=== PATIENT | male | born 1975 | race Caucasian/White ===

== ENCOUNTER 2017-10-14 17:28 | Inpatient (IN) | payer OTHER ==
[2017-10-14] MEDS ORDERED: Sodium Chloride 0.9% 1,000 ML IV ONE (18:04)
--- NOTE | 2017-10-14 18:09 | C.PDOC ---
History Of Present Illness 42 y/o male, with past medical history of diabetes, presents to emergency department, sent by Dr. Willett for I&D of left buttock. Patient reports + fever. Denies nausea, vomiting, or other associated symptoms. Time Seen by Provider: 10/14/17 17:59 Chief Complaint (Nursing): Medical Clearance History Per: Patient History/Exam Limitations: no limitations Onset/Duration Of Symptoms: Days Current Symptoms Are (Timing): Still Present Recent travel outside of the [place]: No Past Medical History Reviewed: Historical Data, Nursing Documentation, Vital Signs Vital Signs: Last Vital Signs Temp 102.8 F H 10/14/17 17:32 Pulse 125 H 10/14/17 17:32 Resp 20 10/14/17 17:32 BP 151/105 H 10/14/17 17:32 Pulse Ox 96 10/14/17 18:28 - Medical History PMH: Diabetes, HTN Surgical History: Appendectomy Family History: States: Unknown Family Hx - Social History Hx Alcohol Use: Yes Hx Substance Use: No - Immunization History Hx Tetanus Toxoid Vaccination: No Hx Influenza Vaccination: No Hx Pneumococcal Vaccination: No Review Of Systems Except As Marked, All Systems Reviewed And Found Negative. Constitutional: Positive for: Fever Cardiovascular: Negative for: Chest Pain Respiratory: Negative for: Cough, Shortness of Breath Skin: Positive for: Lesions (left buttock) Physical Exam - Physical Exam Appears: Non-toxic, No Acute Distress Skin: Normal Color, Warm, Dry Head: Atraumatic, Normacephalic Chest: Symmetrical Cardiovascular: Rhythm Regular Respiratory: Normal Breath Sounds, No Rales, No Rhonchi, No Wheezing Gastrointestinal/Abdominal: Soft, No Tenderness, No Guarding, No Rebound Back: Normal Inspection Extremity: Normal ROM Neurological/Psych: Oriented x3, Normal Speech, Normal Cognition ED Course And Treatment O2 Sat by Pulse Oximetry: 96 (RA) Pulse Ox Interpretation: Normal Progress Note: Discussed with Dr. Willett who agrees upon admission. treated with vancomycin 1 GM IV and tylenol Reassessment Condition: Unchanged - Physician Consult Information Physician Contacted: Justo Willett Outcome Of Conversation: admit Disposition Discussed With : Justo Willett Doctor Will See Patient In The: Hospital - Disposition Disposition: HOSPITALIZED Disposition Time: 18:35 Condition: STABLE - POA Present On Arrival: None - Clinical Impression Clinical Impression: Abscess - PA / HAT MENDER / Resident Statement MD/DO has reviewed & agrees with the documentation as recorded. - Scribe Statement The provider has reviewed the documentation as recorded by the Alconibbecky Sanchez All medical record entries made by the Ralph were at my direction and personally dictated by me. I have reviewed the chart and agree that the record accurately reflects my personal performance of the history, physical exam, medical decision making, and the department course for this patient. I have also personally directed, reviewed, and agree with the discharge instructions and disposition. Decision To Admit - Pt Status Changed To: Hospital Disposition Of: Inpatient - Admit Certification Admit to Inpatient:: After my assessment, the patient will require hospitalization for at least two midnights. This is because of the severity of symptoms shown, intensity of services needed, and/or the medical risk in this patient being treated as an outpatient. - InPatient: Physician Admission Certification: I certify that this patient requires 2 or more midnights of care for the following reason:: Perirectal abscess - . Bed Request Type: Regular Admitting Physician: Justo Willett Patient Diagnosis: Abscess
[2017-10-14] MEDS ORDERED: Vancomycin 1 gm/NS 200 ml 1 GM/200 ML BAG IVPB ONE (18:15)
[2017-10-14 18:56] LABS: BASO % 0.5 % (0.0-2.0); EOS # 0.1 K/uL (0.0-0.7); EOS % 0.7 % (0.0-4.0); HEMATOCRIT 42.9 % (35.0-51.0); LYMPH # 1.4 K/uL (1.0-4.3); LYMPH % 12.6 % (20.0-40.0); MEAN CELL VOLUME 85.7 fL (80.0-94.0); MEAN CORPUSCULAR HEMOGLOBIN 29.4 pg (27.0-31.0); MEAN CORPUSCULAR HGB CONC 34.3 g/dL (33.0-37.0); MEAN PLATELET VOLUME 9.6 fL (7.2-11.7); MONO # 0.9 K/uL (0.0-0.8); MONO % 8.2 % (0.0-10.0); RED CELL DISTRIBUTION WIDTH 13.1 % (11.5-14.5); WHITE BLOOD COUNT 10.7 K/uL (4.8-10.8)
[2017-10-14 18:58] LABS: RBC URINE 1 /hpf (0-3); URINE BACTERIA OCC (<OCC); URINE BILIRUBIN NEGATIVE (NEGATIVE); URINE BLOOD NEGATIVE (NEGATIVE); URINE GLUCOSE (UA) 3+ mg/dL (Normal); URINE KETONE TRACE mg/dL (NEGATIVE); URINE LEUKOCYTE ESTERASE NEG Leu/uL (Negative); URINE PROTEIN 1+ mg/dL (NEGATIVE); WBC URINE 3 /hpf (0-5)
[2017-10-14 19:02] LABS: URINE COLOR YELLOW (YELLOW)
[2017-10-14 19:11] LABS: ALB/GLOB RATIO 1.5 (1.0-2.1); ALKALINE PHOSPHATASE 101 U/L (38-126); ALT/SGPT 72 U/L (21-72); AST/SGOT 35 U/L (17-59); BILIRUBIN,TOTAL 1.3 mg/dL (0.2-1.3); BLOOD UREA NITROGEN 15 mg/dL (9-20); CALCIUM 8.3 mg/dl (8.6-10.4); CARBON DIOXIDE 25 mmol/L (22-30); CHLORIDE 98 mmol/L (98-107); GFR AFRICAN-AMERICAN > 60; GLUCOSE,RANDOM 173 mg/dL (75-110); POTASSIUM 3.5 mmol/L (3.6-5.2); SODIUM 132 mmol/L (132-148); TOTAL PROTEIN 6.9 g/dL (6.3-8.3)
--- NOTE | 2017-10-14 22:59 | CP.PCM.HP ---
History of Present Illness - History of Present Illness History of Present Illness: CC: perianal pain and abscess x 1 week HPI: 42 y/o male with h/o type 2 DM, HTN, Hyperlipidemia , non complaint with his diet , medication and follow up presents with perianal abscess with foul smelling discharge associated with fever, chills and rigors and since yesterday he has been coughing, congested and feeling tired . Denies nausea, vomiting, or other associated symptoms. Present on Admission - Present on Admission Any Indicators Present on Admission: Yes Review of Systems - Review of Systems Systems not reviewed;Unavailable: Acuity of Condition - Constitutional Constitutional: Chills, Fever, Lethargy, Malaise. absent: As Per HPI, Anorexia , Daytime Sleepiness, Excessive Sweating, Fatigue, Frequent Falls, Headache, Increased Appetite, Night Sweats, Snoring, Sleep Apnea, Weight Gain, Weight Loss , Weakness, Other - EENT Eyes: absent: As Per HPI, Blind Spots, Blurred Vision, Change in Vision, Decreased Night Vision, Diplopia, Discharge, Dry Eye, Exophthalmos, Floaters, Irritation, Itchy Eyes, Loss of Peripheral Vision, Pain, Photophobia, Requires Corrective Lenses, Sees Flashes, Spots in Vision, Tunnel Vision, Other Visual Disturbances, Loss of Vision, Other Nose/Mouth/Throat: Nasal Congestion - Cardiovascular Cardiovascular: absent: As Per HPI, Acrocyanosis, Chest Pain, Chest Pain at Rest , Chest Pain with Activity, Claudication, Diaphoresis, Dyspnea, Dyspnea on Exertion, Edema, Irregular Heart Rhythm, Pain Radiating to Arm/Neck/Jaw, Leg Edema, Leg Ulcers, Lightheadedness, Orthopnea, Palpitations, Paroxysmal Nocturnal Dyspnea, Pedal Edema, Radiating Pain, Rapid Heart Rate, Slow Heart Rate, Syncope, Other - Respiratory Respiratory: Cough, Dyspnea, Dyspnea on Exertion, Pain with Coughing - Gastrointestinal Gastrointestinal: absent: As Per HPI, Abdominal Pain, Belching, Bloating, Change in Bowel Habits, Change in Stool Character, Coffee Ground Emesis, Constipation, Cramping, Diarrhea, Dyspepsia, Dysphagia, Early Satiety, Excessive Flatus, Fecal Incontinence, Heartburn, Hematemesis, Hematochezia, Loose Stools, Melena, Nausea, Odynophagia, Temesmus, Vomiting, Other - Genitourinary Genitourinary: Urinary Frequency. absent: As Per HPI, Change in Urinary Stream , Difficulty Urinating, Dysuria, Flank Pain, Hematuria, Pyuria, Nocturia, Urinary Incontinence, Urinary Hesitance, Urinary Urgency, Voiding Freq/Small Amts, Freq UTI, Hx Renal/Bladder Calculi, Hx /Renal Surgery, Bladder Distension, Other - Musculoskeletal Musculoskeletal: Myalgias - Integumentary Integumentary: Dry Skin, Pruritus, Skin Pain, Skin Ulcer - Neurological Neurological: absent: As Per HPI, Abnormal Gait, Abnormal Hearing, Abnormal Movements, Abnormal Speech, Behavioral Changes, Burning Sensations, Confusion, Convulsions, Disequilibrium, Dizziness, Numbness, Focal Weakness, Frequent Falls , Headaches, Lack of Coordination, Loss of Vision, Memory Loss, Paresthesias, Radicular Pain, Restless Legs, Sensory Deficit, Syncope, Tingling, Tremor, Vertigo, Weakness, Other Visual Disturbances, Other - Psychiatric Psychiatric: absent: As Per HPI, Abnormal Sleep Pattern, Anhedonia, Anxiety, Auditory Hallucinations, Behavioral Changes, Change in Appetite, Change in Libido, Confusion, Depression, Difficulty Concentrating, Hallucinations, Homicidal Ideation, Hopelessness, Irritability, Memory Loss, Mood Swings, Panic Attacks, Paranoia, Suicidal Ideation, Visual Hallucinations, Tactile Hallucinations, Other - Endocrine Endocrine: Fatigue, Polydipsia, Polyphagia, Polyuria. absent: As Per HPI, Change in Body Appearance, Change in Libido, Cold Intolorance, Deepening of Voice, Excessive Sweating, Flushing, Heat Intolorance, Increase in Ring/Shoe/ Hat Size, Palpitations, Other Past Patient History - Past Medical History & Family History Past Medical History?: Yes - Past Social History Smoking Status: Light Smoker < 10 Cigarettes Daily - CARDIAC Hx Hypertension: Yes - ENDOCRINE/METABOLIC Hx Diabetes Mellitus Type 2: Yes - MUSCULOSKELETAL/RHEUMATOLOGICAL Hx Falls: No - PSYCHIATRIC Hx Substance Use: No - SURGICAL HISTORY Hx Appendectomy: Yes - ANESTHESIA Hx Anesthesia: Yes Hx Anesthesia Reactions: No Meds Allergies/Adverse Reactions: Allergies Allergy/AdvReac Type Severity Reaction Status Date / Time No Known Allergies Allergy Verified 10/14/17 17:36 Physical Exam - Constitutional Appears: No Acute Distress - Head Exam Head Exam: ATRAUMATIC, NORMAL INSPECTION, NORMOCEPHALIC - Eye Exam Eye Exam: EOMI, Normal appearance, PERRL Pupil Exam: NORMAL ACCOMODATION, PERRL - Respiratory Exam Respiratory Exam: Decreased Breath Sounds, Rales, Rhonchi - Cardiovascular Exam Cardiovascular Exam: REGULAR RHYTHM - GI/Abdominal Exam GI & Abdominal Exam: Normal Bowel Sounds, Soft. absent: Tenderness - Rectal Exam Rectal Exam: Deferred Additional comments: perianal abscess with foul smelling discharge positive erythema, redness Results - Vital Signs Recent Vital Signs: Last Vital Signs Temp 99.2 F 10/14/17 21:45 Pulse 91 H 10/14/17 21:45 Resp 20 10/14/17 21:45 BP 151/94 H 10/14/17 21:45 Pulse Ox 96 10/14/17 21:45 - Labs Result Diagrams: 10/14/17 18:47 10/14/17 18:47 Labs: Laboratory Results - last 24 hr 10/14/17 10/14/17 10/14/17 18:47 18:47 18:47 WBC 10.7 RBC 5.01 Hgb 14.7 Hct 42.9 MCV 85.7 MCH 29.4 MCHC 34.3 RDW 13.1 Plt Count 194 MPV 9.6 Neut % (Auto) 78.0 H Lymph % (Auto) 12.6 L [place] % (Auto) 8.2 Eos % (Auto) 0.7 Baso % (Auto) 0.5 Neut # 8.4 H Lymph # 1.4 [place] # 0.9 H Eos # 0.1 Baso # 0.0 Sodium 132 Potassium 3.5 L Chloride 98 Carbon Dioxide 25 Anion Gap 13 BUN 15 Creatinine 0.7 L Est GFR ( Amer) > 60 Est GFR (Non-Af Amer) > 60 POC Glucose (mg/dL) Random Glucose 173 H Calcium 8.3 L Total Bilirubin 1.3 AST 35 ALT 72 Alkaline Phosphatase 101 Total Protein 6.9 Albumin 4.1 Globulin 2.8 Albumin/Globulin Ratio 1.5 Urine Color Yellow Urine Clarity Clear Urine pH 5.0 Ur Specific [place] 1.025 Urine Protein 1+ H Urine Glucose (UA) 3+ H Urine Ketones Trace Urine Blood Negative Urine Nitrate Negative Urine Bilirubin Negative Urine Urobilinogen 4.0 Ur Leukocyte Esterase Neg Urine WBC (Auto) 3 Urine RBC (Auto) 1 Ur Squamous Epith Cells 2 Urine Bacteria Occ H 10/14/17 21:32 WBC RBC Hgb Hct MCV MCH MCHC RDW Plt Count MPV Neut % (Auto) Lymph % (Auto) [place] % (Auto) Eos % (Auto) Baso % (Auto) Neut # Lymph # [place] # Eos # Baso # Sodium Potassium Chloride Carbon Dioxide Anion Gap BUN Creatinine Est GFR ( Amer) Est GFR (Non-Af Amer) POC Glucose (mg/dL) 157 H Random Glucose Calcium Total Bilirubin AST ALT Alkaline Phosphatase Total Protein Albumin Globulin Albumin/Globulin Ratio Urine Color Urine Clarity Urine pH Ur Specific [place] Urine Protein Urine Glucose (UA) Urine Ketones Urine Blood Urine Nitrate Urine Bilirubin Urine Urobilinogen Ur Leukocyte Esterase Urine WBC (Auto) Urine RBC (Auto) Ur Squamous Epith Cells Urine Bacteria Assessment & Plan (1) Diabetes Status: Acute (2) Perianal abscess Status: Acute
[2017-10-14] MEDS ORDERED: Piperacillin/Tazobact 3.375 GM in Sodium Chloride 100 ML IVPB SCH (23:00)
[2017-10-15] MEDS: Piperacill/Tazo 3.375gm in Dex 3.375 GM/50 ML BAG IVPB SCH ×5 (05:15→22:22)
[2017-10-15] MEDS: (Novolog) Insulin Aspart, Recombinant 100 u/ml 10 ml vial SC SCH ×4 (08:25→22:20)
[2017-10-15] MEDS ORDERED: Nitroglycerin 2% Ointment Foilpak UD TOP STA (08:25)
--- NOTE | 2017-10-15 08:28 | RAD ---
HISTORY: Shortness of breath COMPARISON: No prior. TECHNIQUE: Chest PA and lateral FINDINGS: LUNGS: No active pulmonary disease. Punctate nodular density at the right lung apex may represent vessel on end. PLEURA: No significant pleural effusion identified. No pneumothorax apparent. CARDIOVASCULAR: Normal. OSSEOUS STRUCTURES: No significant abnormalities. VISUALIZED UPPER ABDOMEN: Normal. OTHER FINDINGS: None. IMPRESSION: No active disease.
[2017-10-15] MEDS: Vancomycin 1 gm/NS 200 ml 1 GM/200 ML BAG IVPB SCH ×3 (10:05→17:34)
[2017-10-15] MEDS ORDERED: Bupivacaine HCl 0.25% PF (10 ml) Inj ONE (16:42)
[2017-10-15] MEDS ORDERED: metroNIDAZOLE IV 500 mg/100 ml 500 MG/100 ML BAG ONE (16:43)
[2017-10-15] MEDS ORDERED: Lactated Ringer's 1,000 ML IV ONE (16:51)
[2017-10-15] MEDS ORDERED: HYDROmorphone 0.5 mg/0.5 ml ISec IVP PRN (17:10)
--- NOTE | 2017-10-15 18:47 | OP ---
PROCEDURE DATE: 10/15/2017 PREOPERATIVE DIAGNOSIS: Rectal and pelvic abscess. POSTOPERATIVE DIAGNOSIS: Rectal and pelvic abscess. PROCEDURE PERFORMED: 1. Proctosigmoidoscopy (11531). 2. Incision and drainage of rectal, pelvic and retroperitoneal abscess (19834). 3. Repair of pelvic blood vessel (26451) and adjacent tissue transfer closure 14 sq cm (34392). SURGEON: Raji Novak MD ANESTHESIA: General. BLOOD LOSS: 80 ml. POSTOPERATIVE CONDITION: Stable. INDICATIONS FOR SURGERY: A 42-year-old male presents with extensive rectal and pelvic abscess, taken to the OR now for a drainage. GROSS FINDINGS: He had a supralevator type abscess extending into the pelvic space. 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 PROCEDURE: The patient was taken to the operating room and general anesthesia was administered and placed lithotomy position. The previously spontaneously drained abscess defect was explored and wide. The cavity was noted to extend deep into the pelvis and retroperitoneal space and all the pus was drained from these areas and cultured. A probe was then passed through the intersphincteric fistula into the anus posteriorly and the overlying tissue was divided using the Bovie performing a fistulotomy. A pelvic blood vessel noted to be bleeding was repaired. The wound was irrigated with copious amounts of saline solution. There was a very large tissue defect and in order to facilitate closure, a partial advancement flap closure was performed by widely mobilizing at the periphery and closing approximately 14 sq cm of the wound. The central portion of wound was packed open with saline gauze. The patient tolerated procedure well. Returned to recovery in stable condition. Raji Novak MD
--- NOTE | 2017-10-15 22:39 | CP.PCM.PN ---
Subjective - Date & Time of Evaluation Date of Evaluation: 10/15/17 Time of Evaluation: 18:00 - Subjective Subjective: Pt is s/p Or, he has fistuolectomy done, on post op care Objective - Vital Signs/Intake and Output Vital Signs (last 24 hours): Temp Pulse Resp BP Pulse Ox 98 F 88 16 118/72 96 10/15/17 18:30 10/15/17 18:30 10/15/17 18:30 10/15/17 18:30 10/15/17 18:30 - Medications Medications: Current Medications Glimepiride (Amaryl) 4 mg PO ACD [facility] Last Admin: 10/15/17 19:22 Dose: 4 mg Heparin Sodium (Porcine) (Heparin) 5,000 units SC Q8 [facility] Last Admin: 10/15/17 22:22 Dose: 5,000 units Piperacillin Sod/Tazobactam Sod (Zosyn 3.375 Gm Iv Premix) 3.375 gm in 50 mls @ 100 mls/hr IVPB Q6H [facility] Last Admin: 10/15/17 22:22 Dose: 100 mls/hr Vancomycin/Sodium Chloride (Vancomycin 1 Gm/Ns 200 Ml) 1 gm in 200 mls @ 133 mls/hr IVPB Q12H [facility] Stop: 10/20/17 08:01 Last Admin: 10/15/17 16:58 Dose: 50 mls Insulin Aspart (Novolog) 0 unit SC ACHS [facility] PRN Reason: Protocol Last Admin: 10/15/17 22:20 Dose: Not Given Losartan Potassium (Cozaar) 50 mg PO DAILY [facility] Last Admin: 10/15/17 09:01 Dose: Not Given Metformin HCl (Glucophage Xr) 500 mg PO BID [facility] Last Admin: 10/15/17 19:21 Dose: 500 mg Pneumococcal Polyvalent Vaccine (Pneumovax 23 Vaccine) 0.5 ml IM .ONCE ONE Stop: 10/16/17 10:01 - Labs Labs: 10/14/17 18:47 10/14/17 18:47 APTT 36 SECONDS (21-34) H 10/15/17 06:17 - Constitutional Appears: No Acute Distress - Head Exam Head Exam: ATRAUMATIC, NORMAL INSPECTION, NORMOCEPHALIC - Eye Exam Eye Exam: EOMI, Normal appearance, PERRL Pupil Exam: NORMAL ACCOMODATION, PERRL - ENT Exam ENT Exam: Mucous Membranes Moist, Normal Exam - Respiratory Exam Respiratory Exam: Clear to Ausculation Bilateral, NORMAL BREATHING PATTERN - Cardiovascular Exam Cardiovascular Exam: REGULAR RHYTHM, +S1, +S2. absent: Murmur - GI/Abdominal Exam GI & Abdominal Exam: Soft, Normal Bowel Sounds. absent: Tenderness - Neurological Exam Neurological Exam: Alert, Awake, CN II-XII Intact, Normal Gait, Oriented x3 Assessment and Plan (1) Diabetes Status: Acute (2) Perianal abscess Assessment & Plan: s/P OR post op care wound care pain managemnt Status: Acute
[2017-10-16 01:10] VITALS: RESP 20
[2017-10-16] MEDS: Piperacill/Tazo 3.375gm in Dex 3.375 GM/50 ML BAG IVPB SCH ×4 (05:40→21:59)
[2017-10-16 07:00] LABS: BASO % 0.5 % (0.0-2.0); EOS # 0.2 K/uL (0.0-0.7); EOS % 1.8 % (0.0-4.0); HEMATOCRIT 40.5 % (35.0-51.0); LYMPH # 1.6 K/uL (1.0-4.3); LYMPH % 17.8 % (20.0-40.0); MEAN CELL VOLUME 85.4 fL (80.0-94.0); MEAN CORPUSCULAR HEMOGLOBIN 29.3 pg (27.0-31.0); MEAN CORPUSCULAR HGB CONC 34.3 g/dL (33.0-37.0); MEAN PLATELET VOLUME 9.6 fL (7.2-11.7); MONO # 0.6 K/uL (0.0-0.8); MONO % 6.3 % (0.0-10.0); NRBC % 0.1 % (0.0-2.0); RED CELL DISTRIBUTION WIDTH 12.8 % (11.5-14.5)
[2017-10-16 07:06] LABS: POTASSIUM 3.5 mmol/L (3.6-5.2)
[2017-10-16 07:13] LABS: BLOOD UREA NITROGEN 7 mg/dL (9-20); CARBON DIOXIDE 24 mmol/L (22-30); CHLORIDE 103 mmol/L (98-107); GFR AFRICAN-AMERICAN > 60; GLUCOSE,RANDOM 110 mg/dL (75-110); SODIUM 136 mmol/L (132-148)
[2017-10-16] MEDS: Vancomycin 1 gm/NS 200 ml 1 GM/200 ML BAG IVPB SCH ×2 (08:59→20:00)
[2017-10-16] MEDS ORDERED: Influenza Vaccine 60 mcg/0.5 mL SYR (4YR UP) IM ONE ×2 (10:00→12:45)
[2017-10-16] MEDS ORDERED: Pneumococcal 23-Valent Vaccine IM ONE (10:00)
[2017-10-16] MEDS ORDERED: Potassium Chloride 20 mEq ER Tab PO ONE (10:00)
--- NOTE | 2017-10-16 11:05 | CARD ---
APPROVED REPORT EKG Measurement Heart [id number] <Conclusion> Normal sinus rhythm Minimal voltage criteria for LVH, may be normal variant Inferior infarct, age undetermined Anterior infarct, age undetermined Abnormal ECG
[2017-10-16] MEDS ORDERED: Oxycodone/Acetaminophen 5/325 mg Tab PO PRN (11:39)
[2017-10-16] MEDS: (Novolog) Insulin Aspart, Recombinant 100 u/ml 10 ml vial SC SCH ×4 (12:31→21:58)
[2017-10-16] MEDS: Oxycodone/Acetaminophen 5/325 mg Tab PO PRN (12:55)
--- NOTE | 2017-10-16 23:30 | CP.PCM.PN ---
Subjective - Date & Time of Evaluation Date of Evaluation: 10/16/17 Time of Evaluation: 18:00 Objective - Vital Signs/Intake and Output Vital Signs (last 24 hours): Temp Pulse Resp BP Pulse Ox 98.1 F 92 H 20 164/91 H 98 10/16/17 15:00 10/16/17 15:00 10/16/17 15:00 10/16/17 15:00 10/16/17 15:00 Intake and Output: 10/16/17 10/17/17 18:59 06:59 Intake Total 650 Balance 650 - Medications Medications: Current Medications Glimepiride (Amaryl) 4 mg PO ACD [facility] Last Admin: 10/16/17 16:30 Dose: 4 mg Heparin Sodium (Porcine) (Heparin) 5,000 units SC Q8 [facility] Last Admin: 10/16/17 22:04 Dose: 5,000 units Piperacillin Sod/Tazobactam Sod (Zosyn 3.375 Gm Iv Premix) 3.375 gm in 50 mls @ 100 mls/hr IVPB Q6H [facility] Last Admin: 10/16/17 21:59 Dose: 100 mls/hr Vancomycin/Sodium Chloride (Vancomycin 1 Gm/Ns 200 Ml) 1 gm in 200 mls @ 133 mls/hr IVPB Q12H [facility] Stop: 10/20/17 08:01 Last Admin: 10/16/17 20:00 Dose: 133 mls/hr Insulin Aspart (Novolog) 0 unit SC ACHS [facility] PRN Reason: Protocol Last Admin: 10/16/17 21:58 Dose: Not Given Losartan Potassium (Cozaar) 50 mg PO DAILY [facility] Last Admin: 10/16/17 09:18 Dose: 50 mg Metformin HCl (Glucophage Xr) 500 mg PO BID [facility] Last Admin: 10/16/17 17:33 Dose: 500 mg Oxycodone/Acetaminophen (Percocet 5/325 Mg Tab) 1 tab PO Q6H PRN PRN Reason: Pain, moderate (4-7) Stop: 10/19/17 11:40 Oxycodone/Acetaminophen (Percocet 5/325 Mg Tab) 2 tab PO Q4H PRN PRN Reason: Pain, severe (8-10) Stop: 10/19/17 11:56 Last Admin: 10/16/17 12:55 Dose: 2 tab - Labs Labs: 10/16/17 06:33 10/16/17 06:33 APTT 36 SECONDS (21-34) H 10/15/17 06:17 Assessment and Plan (1) Diabetes Status: Acute (2) Perianal abscess Status: Acute
[2017-10-17] MEDS: Oxycodone/Acetaminophen 5/325 mg Tab PO PRN (01:55)
[2017-10-17] MEDS: Piperacill/Tazo 3.375gm in Dex 3.375 GM/50 ML BAG IVPB SCH ×2 (05:00→11:56)
[2017-10-17 07:30] VITALS: BP 141/95; PULSE 69; TEMP 97.7; O2SAT 96
[2017-10-17] MEDS: (Novolog) Insulin Aspart, Recombinant 100 u/ml 10 ml vial SC SCH ×2 (08:10→11:57)
[2017-10-17] MEDS: Vancomycin 1 gm/NS 200 ml 1 GM/200 ML BAG IVPB SCH (08:28)
--- NOTE | 2017-10-17 23:20 | CP.PCM.DIS ---
Provider - Provider Date of Admission: 10/14/17 18:08 Attending physician: Justo Willett MD Diagnosis - Discharge Diagnosis (1) Diabetes Status: Acute (2) Perianal abscess Status: Acute Hospital Course - Lab Results Lab Results: Micro Results 10/15/17 19:00 Rectum Gram Stain - Final 10/15/17 19:00 Rectum Wound Culture - Preliminary Gram Negative Jaime Corynebacterium Species 10/14/17 18:20 Blood Blood Culture - Preliminary NO GROWTH AFTER 48 HOURS 10/14/17 18:45 Blood Blood Culture - Preliminary NO GROWTH AFTER 48 HOURS Most Recent Lab Values WBC 9.0 K/uL (4.8-10.8) 10/16/17 06:33 RBC 4.74 Mil/uL (4.40-5.90) 10/16/17 06:33 Hgb 13.9 g/dL (12.0-18.0) 10/16/17 06:33 Hct 40.5 % (35.0-51.0) 10/16/17 06:33 MCV 85.4 fL (80.0-94.0) 10/16/17 06:33 MCH 29.3 pg (27.0-31.0) 10/16/17 06:33 MCHC 34.3 g/dL (33.0-37.0) 10/16/17 06:33 RDW 12.8 % (11.5-14.5) 10/16/17 06:33 Plt Count 199 K/uL (130-400) 10/16/17 06:33 MPV 9.6 fL (7.2-11.7) 10/16/17 06:33 Neut % (Auto) 73.6 % (50.0-75.0) 10/16/17 06:33 Lymph % (Auto) 17.8 % (20.0-40.0) L 10/16/17 06:33 [place] % (Auto) 6.3 % (0.0-10.0) 10/16/17 06:33 Eos % (Auto) 1.8 % (0.0-4.0) 10/16/17 06:33 Baso % (Auto) 0.5 % (0.0-2.0) 10/16/17 06:33 Neut # 6.7 K/uL (1.8-7.0) 10/16/17 06:33 Lymph # 1.6 K/uL (1.0-4.3) 10/16/17 06:33 [place] # 0.6 K/uL (0.0-0.8) 10/16/17 06:33 Eos # 0.2 K/uL (0.0-0.7) 10/16/17 06:33 Baso # 0.0 K/uL (0.0-0.2) 10/16/17 06:33 APTT 36 SECONDS (21-34) H 10/15/17 06:17 Sodium 136 mmol/L (132-148) 10/16/17 06:33 Potassium 3.5 mmol/L (3.6-5.2) L 10/16/17 06:33 Chloride 103 mmol/L (98-107) 10/16/17 06:33 Carbon Dioxide 24 mmol/L (22-30) 10/16/17 06:33 Anion Gap 13 (10-20) 10/16/17 06:33 BUN 7 mg/dL (9-20) L 10/16/17 06:33 Creatinine 0.6 mg/dL (0.8-1.5) L 10/16/17 06:33 Est GFR ( Amer) > 60 10/16/17 06:33 Est GFR (Non-Af Amer) > 60 10/16/17 06:33 POC Glucose (mg/dL) 218 mg/dL (65-110) H 10/17/17 11:10 Random Glucose 110 mg/dL (75-110) 10/16/17 06:33 Calcium 8.0 mg/dl (8.6-10.4) L 10/16/17 06:33 Total Bilirubin 1.3 mg/dL (0.2-1.3) 10/14/17 18:47 AST 35 U/L (17-59) 10/14/17 18:47 ALT 72 U/L (21-72) 10/14/17 18:47 Alkaline Phosphatase 101 U/L (38-126) 10/14/17 18:47 Total Protein 6.9 g/dL (6.3-8.3) 10/14/17 18:47 Albumin 4.1 g/dL (3.5-5.0) 10/14/17 18:47 Globulin 2.8 gm/dL (2.2-3.9) 10/14/17 18:47 Albumin/Globulin Ratio 1.5 (1.0-2.1) 10/14/17 18:47 Urine Color Yellow (YELLOW) 10/14/17 18:47 Urine Clarity Clear (Clear) 10/14/17 18:47 Urine pH 5.0 (5.0-8.0) 10/14/17 18:47 Ur Specific [place] 1.025 (1.003-1.030) 10/14/17 18:47 Urine Protein 1+ mg/dL (NEGATIVE) H 10/14/17 18:47 Urine Glucose (UA) 3+ mg/dL (Normal) H 10/14/17 18:47 Urine Ketones Trace mg/dL (NEGATIVE) 10/14/17 18:47 Urine Blood Negative (NEGATIVE) 10/14/17 18:47 Urine Nitrate Negative (NEGATIVE) 10/14/17 18:47 Urine Bilirubin Negative (NEGATIVE) 10/14/17 18:47 Urine Urobilinogen 4.0 mg/dL (0.2-1.0) 10/14/17 18:47 Ur Leukocyte Esterase Neg [place]/uL (Negative) 10/14/17 18:47 Urine WBC (Auto) 3 /hpf (0-5) 10/14/17 18:47 Urine RBC (Auto) 1 /hpf (0-3) 10/14/17 18:47 Ur Squamous Epith Cells 2 /hpf (0-5) 10/14/17 18:47 Urine Bacteria Occ (<OCC) H 10/14/17 18:47 Discharge Exam - Head Exam Head Exam: ATRAUMATIC, NORMAL INSPECTION, NORMOCEPHALIC Discharge Plan - Follow Up Plan Condition: STABLE Disposition: HOME/ ROUTINE Instructions: Cellulitis (DC), Fever in Adults (GEN), Abscess (GEN) Referrals: Justo Willett MD [Staff Provider] - Raji Novak MD [Staff Provider] -
== END 2017-10-17 12:59 | disposition home or self-care (01) | DRG 553 ==
LOC: C.ER 17:28 → C.9E 18:08 → C.3T 19:42
PROVIDERS: ADMIT Internal Medicine; ATTEND Internal Medicine
PROC: 0D8R3ZZ Division of Anal Sphincter, Percutaneous Approach (ICD-10-PCS; 2017-10-15)
PROC: 0D9P3ZZ Drainage of Rectum, Percutaneous Approach (ICD-10-PCS; 2017-10-15)
PROC: 0DJD8ZZ Inspection of Lower Intestinal Tract, Via Natural or Artificial Opening Endoscopic (ICD-10-PCS; 2017-10-15)
PROC: 0W9H3ZZ Drainage of Retroperitoneum, Percutaneous Approach (ICD-10-PCS; principal; 2017-10-15 15:00)
DX: K61.2 Anorectal abscess (principal); K68.19 Other retroperitoneal abscess; K60.3 Anal fistula; I10 Essential (primary) hypertension; E11.9 Type 2 diabetes mellitus without complications; F17.210 Nicotine dependence, cigarettes, uncomplicated; E78.5 Hyperlipidemia, unspecified; Z91.11 Patient's noncompliance with dietary regimen; Z90.49 Acquired absence of other specified parts of digestive tract

== ENCOUNTER 2018-07-19 17:57 | Inpatient (IN) | payer OTHER ==
[2018-07-19 18:55] LABS: BASO # 0.1 K/uL (0.0-0.2); BASO % 0.6 % (0.0-2.0); EOS % 0.1 % (0.0-4.0); HEMOGLOBIN 15.4 g/dL (12.0-18.0); LYMPH # 0.7 K/uL (1.0-4.3); LYMPH % 7.3 % (20.0-40.0); MEAN CELL VOLUME 85.2 fL (80.0-94.0); MEAN CORPUSCULAR HEMOGLOBIN 29.3 pg (27.0-31.0); MEAN CORPUSCULAR HGB CONC 34.4 g/dL (33.0-37.0); MEAN PLATELET VOLUME 9.5 fL (7.2-11.7); MONO # 0.7 K/uL (0.0-0.8); MONO % 7.6 % (0.0-10.0); NEUT # 8.1 K/uL (1.8-7.0); NEUT % 84.4 % (50.0-75.0); PLATELET COUNT 173 K/uL (130-400); RBC 5.25 Mil/uL (4.40-5.90); RED CELL DISTRIBUTION WIDTH 12.6 % (11.5-14.5); WHITE BLOOD COUNT 9.6 K/uL (4.8-10.8)
[2018-07-19 19:01] LABS: SQUAMOUS EPITHIAL < 1 /hpf (0-5); URINE BILIRUBIN NEGATIVE (NEGATIVE); URINE BLOOD NEGATIVE (NEGATIVE); URINE CLARITY Clear (Clear); URINE COLOR Yellow (YELLOW); URINE GLUCOSE (UA) 1+ mg/dL (Normal); URINE LEUKOCYTE ESTERASE NEG Leu/uL (Negative); URINE PROTEIN 1+ mg/dL (NEGATIVE)
[2018-07-19] MEDS ORDERED: Sodium Chloride 0.9% 1,000 ML IV ONE (19:03)
[2018-07-19 19:27] LABS: ALB/GLOB RATIO 1.3 (1.0-2.1); ALBUMIN 3.9 g/dL (3.5-5.0); ALT/SGPT 63 U/L (21-72); AST/SGOT 40 U/L (17-59); BLOOD UREA NITROGEN 11 mg/dL (9-20); CALCIUM 8.7 mg/dl (8.6-10.4); GFR NON-AFRICAN AMERICAN > 60
--- NOTE | 2018-07-19 19:50 | C.PDOC ---
History Of Present Illness 43 year old male with PMHx of DM presents to the ED for evaluation of fever which is associated with cough, chills, vomiting, diarrhea and decreased appetite. Patient reports he went to see Dr. Willett for evaluation of chest tightness. Patient was diagnosed with bronchitis and was prescribed Augmentin. Patient states he has been taking Augmentin since Thursday. Patient's reports that due to the patient's fever they turned off the AM at home. Patient denies rash, recent travel, back pain, dyauria, hematuria, sick contacts. Time Seen by Provider: 07/19/18 18:29 Chief Complaint (Nursing): Cough, Cold, Congestion History Per: Patient History/Exam Limitations: no limitations Onset/Duration Of Symptoms: Days Current Symptoms Are (Timing): Still Present Location Of Pain: Throat, Diffuse Myalgias Sick Contacts (Context): None Associated Symptoms: Fever, Cough, Myalgias, Vomiting, Diarrhea Ear Symptoms: Bilateral: None Recent travel outside of the [place]: No Additional History Per: Patient Past Medical History Reviewed: Historical Data, Nursing Documentation, Vital Signs Vital Signs: Last Vital Signs Temp 99.8 F H 07/19/18 20:37 Pulse 95 H 07/19/18 20:37 Resp 18 07/19/18 20:37 BP 113/78 07/19/18 20:37 Pulse Ox 98 07/19/18 20:37 - Medical History PMH: Diabetes, HTN Surgical History: Appendectomy - [facility] Procedures DIVISION OF ANAL SPHINCTER, PERCUTANEOUS APPROACH (10/14/17) DRAINAGE OF RECTUM, PERCUTANEOUS APPROACH (10/14/17) DRAINAGE OF RETROPERITONEUM, PERCUTANEOUS APPROACH (10/14/17) INSPECTION OF LOWER INTESTINAL TRACT, ENDO (10/14/17) Family History: States: Unknown Family Hx - Social History Hx Tobacco Use: No Hx Alcohol Use: Yes Hx Substance Use: No - Immunization History Hx Tetanus Toxoid Vaccination: No Hx Influenza Vaccination: No Hx Pneumococcal Vaccination: No Review Of Systems Constitutional: Negative for: Fever, Chills Cardiovascular: Positive for: Chest Pain. Negative for: Palpitations Respiratory: Negative for: Cough, Shortness of Breath Gastrointestinal: Positive for: Nausea, Vomiting. Negative for: Abdominal Pain Skin: Negative for: Rash Neurological: Negative for: Weakness, Numbness Physical Exam - Physical Exam Appears: Non-toxic, No Acute Distress Skin: Normal Color, Warm, Dry, No Rash Head: Atraumatic, Normacephalic Eye(s): bilateral: Normal Inspection Ear(s): Bilateral: Normal Nose: No Discharge Oral Mucosa: Moist Throat: Normal, No Erythema, No Exudate Neck: Normal ROM, Supple Chest: Symmetrical Cardiovascular: Rhythm Regular, No Friction Rub, No Murmur Respiratory: Normal Breath Sounds, No Rales, No Rhonchi, No Wheezing Gastrointestinal/Abdominal: Soft, No Tenderness, No Guarding, No Rebound Back: Normal Inspection, No CVA Tenderness Extremity: Normal ROM, No Tenderness, No Swelling Neurological/Psych: Oriented x3, Normal Speech, Normal Motor, Normal Sensation Gait: Steady ED Course And Treatment - Laboratory Results Result Diagrams: 07/19/18 18:49 07/19/18 18:49 O2 Sat by Pulse Oximetry: 97 (ON RA) Pulse Ox Interpretation: Normal Medical Decision Making Medical Decision Making: Plan: * Labs * Motrin 600 mg PO * IV fluids * UA The case was discussed with Dr. Willett who agrees to admit the patient. Disposition - Disposition Disposition: HOSPITALIZED Disposition Time: 19:30 Condition: STABLE - POA Present On Arrival: None - Clinical Impression Clinical Impression: Pneumonia - PA / CREDIT ADJUSTER / Resident Statement MD/DO has reviewed & agrees with the documentation as recorded. - Scribe Statement The provider has reviewed the documentation as recorded by the Scribe Wyatt Strong All medical record entries made by the Scribe were at my direction and personally dictated by me. I have reviewed the chart and agree that the record accurately reflects my personal performance of the history, physical exam, medical decision making, and the department course for this patient. I have also personally directed, reviewed, and agree with the discharge instructions and disposition.
[2018-07-19 19:59] LABS: LYMPHOCYTE 8 % (20-40); MONOCYTE 9 % (0-10); NEUTROPHIL 83 % (50-75); TOTAL CELLS COUNTED 100
[2018-07-19 20:00] LABS: PLATELET ESTIMATE NORMAL (NORMAL)
[2018-07-19] MEDS ORDERED: cefTRIAXone IV 1 gm in Dextros 50 ML IV ONE (20:19)
[2018-07-19] MEDS ORDERED: Azithromycin 500mg/250ML NS 500 MG/250 ML BAG IV ONE (20:30)
[2018-07-19] MEDS ORDERED: Azithromycin 500mg/250ML NS 500 MG/250 ML BAG IVPB ONE (20:32)
--- NOTE | 2018-07-19 23:50 | CP.PCM.HP ---
Present on Admission - Present on Admission Any Indicators Present on Admission: No Past Patient History - Past Medical History & Family History Past Medical History?: Yes - Past Social History Smoking Status: Light Smoker < 10 Cigarettes Daily - CARDIAC Hx Hypertension: Yes - ENDOCRINE/METABOLIC Hx Diabetes Mellitus Type 2: Yes - MUSCULOSKELETAL/RHEUMATOLOGICAL Hx Falls: No - PSYCHIATRIC Hx Substance Use: No - SURGICAL HISTORY Hx Appendectomy: Yes - ANESTHESIA Hx Anesthesia: Yes Hx Anesthesia Reactions: No Meds Allergies/Adverse Reactions: Allergies Allergy/AdvReac Type Severity Reaction Status Date / Time No Known Allergies Allergy Verified 07/19/18 18:12 Results - Vital Signs Recent Vital Signs: Last Vital Signs Temp 99.8 F H 07/19/18 20:37 Pulse 95 H 07/19/18 20:37 Resp 18 07/19/18 20:37 BP 113/78 07/19/18 20:37 Pulse Ox 97 07/19/18 22:39 - Labs Result Diagrams: 07/22/18 07:42 07/22/18 07:42 Labs: Laboratory Results - last 24 hr 07/19/18 07/19/18 07/19/18 18:49 18:49 18:49 WBC 9.6 RBC 5.25 Hgb 15.4 Hct 44.7 MCV 85.2 MCH 29.3 MCHC 34.4 RDW 12.6 Plt Count 173 MPV 9.5 Neut % (Auto) 84.4 H Lymph % (Auto) 7.3 L [place] % (Auto) 7.6 Eos % (Auto) 0.1 Baso % (Auto) 0.6 Neut # (Auto) 8.1 H Lymph # (Auto) 0.7 L [place] # (Auto) 0.7 Eos # (Auto) 0.0 Baso # (Auto) 0.1 Neutrophils % (Manual) 83 H Lymphocytes % (Manual) 8 L Monocytes % (Manual) 9 Platelet Estimate Normal Sodium 136 Potassium 3.7 Chloride 99 Carbon Dioxide 23 Anion Gap 18 BUN 11 Creatinine 0.8 Est GFR ( Amer) > 60 Est GFR (Non-Af Amer) > 60 Random Glucose 265 H Calcium 8.7 Total Bilirubin 1.4 H AST 40 ALT 63 Alkaline Phosphatase 123 Total Protein 7.0 Albumin 3.9 Globulin 3.1 Albumin/Globulin Ratio 1.3 Urine Color Yellow Urine Clarity Clear Urine pH 6.0 Ur Specific Call 1.012 Urine Protein 1+ H Urine Glucose (UA) 1+ H Urine Ketones Trace Urine Blood Negative Urine Nitrate Negative Urine Bilirubin Negative Urine Urobilinogen 2.0 Ur Leukocyte Esterase Neg Urine WBC (Auto) 1 Ur Squamous Epith Cells < 1
[2018-07-19 23:57] VITALS: RESP 20
[2018-07-20] MEDS: guaiFENesin 200 mg/10 ml Syrup UD PO PRN ×4 (00:04→21:24)
[2018-07-20] MEDS: (Lantus) Insulin Glargine, Recombinant SC SCH ×3 (00:08→17:00)
[2018-07-20] MEDS: Lactated Ringer's 1,000 ML IV SCH ×4 (00:11→22:07)
[2018-07-20] MEDS: (Novolin R) Insulin Human Regular 100 units/ml vial SC SCH ×4 (08:11→21:22)
--- NOTE | 2018-07-20 08:43 | RAD ---
Date of service: 07/19/2018 HISTORY: r/o pneumonia COMPARISON: 10/14/2017 TECHNIQUE: Chest PA and lateral FINDINGS: LUNGS: An interval left mid -lower lung zone homogeneous opacity is present - bordering the left heart border and inferior left hilum. PLEURA: The trace left interval costophrenic angle pleural effusion is possible. No pneumothorax apparent. CARDIOVASCULAR: Normal. OSSEOUS STRUCTURES: No significant abnormalities. VISUALIZED UPPER ABDOMEN: Normal. OTHER FINDINGS: None. IMPRESSION: Interval left mid lung zone opacity compatible with the clinical suspicion of a pneumonia. Follow-up to complete resolution recommended. Comments: Study marked for PA review .
[2018-07-20] MEDS: Enoxaparin 40 mg Syringe SC SCH (09:55)
[2018-07-20] MEDS: Azithromycin 500 MG in Sodium Chloride 0.9% 250 ML IVPB SCH (10:51)
--- NOTE | 2018-07-20 12:29 | HP ---
Copied To: Justo Willett MD Attending MD: Justo Willett MD CHIEF COMPLAINT: Cough, chest pain, congestion. HISTORY OF PRESENT ILLNESS: This is a 43-year-old male, well known to me with history of type 2 diabetes, hypertension, hyperlipidemia, nonsmoker, and he is noncompliant with his diet, medication and followup. He was evaluated by me two days ago with chest pain, cough, congestion, fever, chills, rigors, nausea, vomiting, diarrhea, poor appetite, and a diagnosis of pneumonia was made and he was started on Augmentin. The patient started taking Augmentin and he was tolerating and his condition started improving, and he started having nausea, vomiting, generalized weakness, tiredness, anorexia, malaise and fatigue. He denies any rash, history of travel, back pain, dysuria, hematuria. He denies any history of trauma, fall, seizure, polyuria, polydipsia, polyphagia. He denies any hematuria, pyuria. He denies any sneezing, itchy eyes, or itchy nose. There is generalized body aches, tiredness, muscle aches and pain. The patient denies sneezing. The patient denies any joint pain. The patient has tingling and numbness in the feet. PAST MEDICAL HISTORY: Type 2 diabetes, hypertension, hyperlipidemia. SOCIAL HISTORY: Nonsmoker, non-EtOH user. CURRENT MEDICATIONS: He is on , Cozaar, Augmentin, Januvia, promethazine, and metformin. PHYSICAL EXAMINATION: GENERAL: A middle-aged male . VITAL SIGNS: Blood pressure 151/87, pulse 106, respiratory rate 20, temperature 101.7. SKIN: Warm. Good turgor. No bruises. No purpura. Positive . HEENT: Atraumatic, normocephalic. Negative pallor. No acute jaundice. Extraocular movements are intact. NECK: Supple. No JVD. No lymph nodes. No thyromegaly. CHEST: Chest wall bilateral symmetrical expansion. The patient has fine crackles on the left middle lobe. CVS: S1 and S2 regular. ABDOMEN: Soft, nontender. Bowel sounds are positive. RECTAL: Negative. GENITAL: Normal. EXTREMITIES: No clubbing, cyanosis, or edema. 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 ASSESSMENT: 1. Middle lobe pneumonia, community acquired. 2. Type 2 diabetes. 3. Hypertension. 4. Dehydration. PLAN: Admit. Detailed orders written. Seen and examined. Justo Willett MD
[2018-07-20] MEDS: Albuterol-Ipratrop 3 mg / 0.5 (3 ml) UD INH SCH ×2 (19:18→19:20)
--- NOTE | 2018-07-20 22:15 | CP.PCM.PN ---
Objective - Vital Signs/Intake and Output Vital Signs (last 24 hours): Temp Pulse Resp BP Pulse Ox 99.1 F 100 H 20 149/99 H 95 07/20/18 21:03 07/20/18 19:21 07/20/18 16:27 07/20/18 16:27 07/20/18 16:27 Intake and Output: 07/20/18 07/21/18 18:59 06:59 Intake Total 1350 Balance 1350 - Medications Medications: Current Medications Acetaminophen (Tylenol 325mg Tab) 650 mg PO Q6 PRN PRN Reason: Fever >100.4 F Last Admin: 07/20/18 20:03 Dose: 650 mg Albuterol/Ipratropium (Duoneb 3 Mg/0.5 Mg (3 Ml) Ud) 3 ml INH RQ6 [facility] Last Admin: 07/20/18 19:20 Dose: Not Given Enoxaparin Sodium (Lovenox) 40 mg SC DAILY [facility] Last Admin: 07/20/18 09:55 Dose: 40 mg Guaifenesin (Robitussin) 200 mg PO Q4H PRN PRN Reason: Cough and congestion Last Admin: 07/20/18 21:24 Dose: 200 mg Ceftriaxone Sodium 1 gm/ (Sodium Chloride) 100 mls @ 100 mls/hr IVPB DAILY [facility] PRN Reason: Protocol Last Admin: 07/20/18 09:53 Dose: 100 mls/hr Azithromycin 500 mg/ Sodium (Chloride) 250 mls @ 250 mls/hr IVPB DAILY [facility] PRN Reason: Protocol Last Admin: 07/20/18 10:51 Dose: 250 mls/hr Lactated Ringer's (Lactated Ringer's) 1,000 mls @ 80 mls/hr IV .[id number] [facility] Last Admin: 07/20/18 22:07 Dose: 80 mls/hr Insulin Glargine (Lantus) 20 unit SC BID [facility] Last Admin: 07/20/18 17:00 Dose: 20 units Insulin Human Regular (Novolin R) 0 unit SC ACHS [facility] PRN Reason: Protocol Last Admin: 07/20/18 21:22 Dose: Not Given Losartan Potassium (Cozaar) 50 mg PO DAILY [facility] Last Admin: 07/20/18 09:55 Dose: 50 mg Metformin HCl (Glucophage) 850 mg PO TID [facility] Last Admin: 07/20/18 17:48 Dose: 850 mg Pneumococcal Polyvalent Vaccine (Pneumovax 23 Vaccine) 0.5 ml IM .ONCE ONE Stop: 07/22/18 10:01 Sitagliptin Phosphate (Januvia) 100 mg PO DAILY [facility] Last Admin: 07/20/18 09:55 Dose: 100 mg - Labs Labs: 07/19/18 18:49 07/19/18 18:49
[2018-07-21] MEDS: guaiFENesin 200 mg/10 ml Syrup UD PO PRN ×3 (02:20→21:13)
[2018-07-21] MEDS: Albuterol-Ipratrop 3 mg / 0.5 (3 ml) UD INH SCH ×4 (03:52→20:20)
--- NOTE | 2018-07-21 04:22 | PN ---
Copied To: Justo Willett MD Attending MD: Justo Willett MD DATE: 07/20/2018 SUBJECTIVE: The patient is febrile. He is having chills, rigors. He denies any shortness of breath. PHYSICAL EXAMINATION: VITAL SIGNS: Blood pressure is 149/99, pulse 100, respiratory rate 20, temperature 100.5. LUNGS: Positive crackles in the left middle lobe. CARDIOVASCULAR SYSTEM: S1, S2 are regular. ABDOMEN: Soft. ASSESSMENT: 1. Left middle lobe pneumonia. 2. Uncontrolled diabetes. 3. Hypertension. PLAN: Medical management. Monitor the patient. Justo Willett MD
[2018-07-21] MEDS: Lactated Ringer's 1,000 ML IV SCH ×3 (05:25→17:52)
[2018-07-21] MEDS: (Novolin R) Insulin Human Regular 100 units/ml vial SC SCH ×4 (07:45→21:13)
[2018-07-21 07:52] LABS: BASO # 0.1 K/uL (0.0-0.2); BASO % 0.8 % (0.0-2.0); EOS # 0.1 K/uL (0.0-0.7); EOS % 0.9 % (0.0-4.0); HEMOGLOBIN 14.5 g/dL (12.0-18.0); LYMPH # 1.2 K/uL (1.0-4.3); LYMPH % 17.6 % (20.0-40.0); MEAN CORPUSCULAR HEMOGLOBIN 29.3 pg (27.0-31.0); MEAN PLATELET VOLUME 9.9 fL (7.2-11.7); MONO # 0.7 K/uL (0.0-0.8); MONO % 10.7 % (0.0-10.0); NEUT # 4.6 K/uL (1.8-7.0); RBC 4.95 Mil/uL (4.40-5.90); RED CELL DISTRIBUTION WIDTH 12.7 % (11.5-14.5); WHITE BLOOD COUNT 6.6 K/uL (4.8-10.8)
[2018-07-21 08:31] LABS: BLOOD UREA NITROGEN 6 mg/dL (9-20); CALCIUM 8.3 mg/dl (8.6-10.4); GFR NON-AFRICAN AMERICAN > 60
[2018-07-21] MEDS: Enoxaparin 40 mg Syringe SC SCH (09:24)
[2018-07-21] MEDS: (Lantus) Insulin Glargine, Recombinant SC SCH ×2 (09:24→17:50)
[2018-07-21] MEDS: Azithromycin 500 MG in Sodium Chloride 0.9% 250 ML IVPB SCH (09:39)
[2018-07-21] MEDS: Piperacillin/Tazobact 3.375 GM in Sodium Chloride 100 ML IVPB SCH ×2 (12:53→17:45)
--- NOTE | 2018-07-21 16:27 | CP.PCM.CON ---
History of Present Illness - History of Present Illness History of Present Illness: reason for consultation: shortness of breath, cough and fever 43-year-old male with history of diabetes presented to emergency room complaining of fever, cough, diarrhea/vomiting and poor appetite. Patient was initially treated with antibiotics for bronchitis. Chest x-ray done in the emergency room consistent with left lung infiltrate. Patient started on IV antibiotics. Review of Systems - Review of Systems All systems: reviewed and no additional remarkable complaints except (shortness of breath, cough and fever) Past Patient History - Past Medical History & Family History Past Medical History?: Yes - Past Social History Smoking Status: Current Some Days Smoker - CARDIAC Hx Cardiac Disorders: Yes Hx Hypertension: Yes - PULMONARY Hx Respiratory Disorders: No - NEUROLOGICAL Hx Neurological Disorder: No - HEENT Hx HEENT Problems: No - RENAL Hx Chronic Kidney Disease: No - ENDOCRINE/METABOLIC Hx Endocrine Disorders: Yes Hx Diabetes Mellitus Type 2: Yes - HEMATOLOGICAL/ONCOLOGICAL Hx Blood Disorders: No - INTEGUMENTARY Hx Dermatological Problems: No - MUSCULOSKELETAL/RHEUMATOLOGICAL Hx Musculoskeletal Disorders: No Hx Falls: No - GASTROINTESTINAL Hx Gastrointestinal Disorders: No - GENITOURINARY/GYNECOLOGICAL Hx Genitourinary Disorders: No - PSYCHIATRIC Hx Psychophysiologic Disorder: No Hx Substance Use: No - SURGICAL HISTORY Hx Surgeries: Yes Hx Appendectomy: Yes Other/Comment: Removal of boil. - ANESTHESIA Hx Anesthesia: Yes Hx Anesthesia Reactions: No Hx Malignant Hyperthermia: No Has any member of the family had a problem w/ anesthesia?: No Meds Allergies/Adverse Reactions: Allergies Allergy/AdvReac Type Severity Reaction Status Date / Time No Known Allergies Allergy Verified 07/19/18 18:12 - Medications Medications: Current Medications Acetaminophen (Tylenol 325mg Tab) 650 mg PO Q6 PRN PRN Reason: Fever >100.4 F Last Admin: 07/21/18 15:43 Dose: 650 mg Albuterol/Ipratropium (Duoneb 3 Mg/0.5 Mg (3 Ml) Ud) 3 ml INH RQ6 [facility] Last Admin: 07/21/18 13:44 Dose: 3 ml Enoxaparin Sodium (Lovenox) 40 mg SC DAILY [facility] Last Admin: 07/21/18 09:24 Dose: 40 mg Guaifenesin (Robitussin) 200 mg PO Q4H PRN PRN Reason: Cough and congestion Last Admin: 07/21/18 02:20 Dose: 200 mg Ceftriaxone Sodium 1 gm/ (Sodium Chloride) 100 mls @ 100 mls/hr IVPB DAILY [facility] PRN Reason: Protocol Last Admin: 07/21/18 09:39 Dose: 100 mls/hr Azithromycin 500 mg/ Sodium (Chloride) 250 mls @ 250 mls/hr IVPB DAILY [facility] PRN Reason: Protocol Last Admin: 07/21/18 09:39 Dose: 250 mls/hr Lactated Ringer's (Lactated Ringer's) 1,000 mls @ 80 mls/hr IV .[id number] [facility] Last Admin: 07/21/18 14:13 Dose: 80 mls/hr Piperacillin Sod/Tazobactam (Sod 3.375 gm/ Sodium Chloride) 100 mls @ 200 mls/ hr IVPB Q6H [facility] PRN Reason: Protocol Last Admin: 07/21/18 12:53 Dose: 200 mls/hr Insulin Glargine (Lantus) 20 unit SC BID [facility] Last Admin: 07/21/18 09:24 Dose: 20 units Insulin Human Regular (Novolin R) 0 unit SC ACHS [facility] PRN Reason: Protocol Last Admin: 07/21/18 12:00 Dose: 2 units Losartan Potassium (Cozaar) 50 mg PO DAILY [facility] Last Admin: 07/21/18 09:24 Dose: 50 mg Metformin HCl (Glucophage) 850 mg PO TID [facility] Last Admin: 07/21/18 13:40 Dose: 850 mg Pneumococcal Polyvalent Vaccine (Pneumovax 23 Vaccine) 0.5 ml IM .ONCE ONE Stop: 07/22/18 10:01 Sitagliptin Phosphate (Januvia) 100 mg PO DAILY [facility] Last Admin: 07/21/18 09:24 Dose: 100 mg Physical Exam - Head Exam Head Exam: ATRAUMATIC, NORMOCEPHALIC - Eye Exam Eye Exam: Normal appearance - ENT Exam ENT Exam: Mucous Membranes Moist - Neck Exam Neck exam: Positive for: Normal Inspection - Respiratory Exam Respiratory Exam: Rales - Cardiovascular Exam Cardiovascular Exam: REGULAR RHYTHM - GI/Abdominal Exam GI & Abdominal Exam: Normal Bowel Sounds, Soft - Extremities Exam Extremities exam: Positive for: normal inspection Results - Vital Signs Recent Vital Signs: Last Vital Signs Temp 99.3 F 07/21/18 16:00 Pulse 105 H 08/22/18 16:00 Resp 20 07/21/18 16:00 BP 147/90 07/21/18 16:00 Pulse Ox 95 07/21/18 16:00 - Labs Result Diagrams: 07/21/18 07:38 07/21/18 07:38 Labs: Laboratory Results - last 24 hr 07/20/18 07/20/18 07/21/18 16:29 21:13 07:31 WBC RBC Hgb Hct MCV MCH MCHC RDW Plt Count MPV Neut % (Auto) Lymph % (Auto) [place] % (Auto) Eos % (Auto) Baso % (Auto) Neut # (Auto) Lymph # (Auto) [place] # (Auto) Eos # (Auto) Baso # (Auto) Sodium Potassium Chloride Carbon Dioxide Anion Gap BUN Creatinine Est GFR ( Amer) Est GFR (Non-Af Amer) POC Glucose (mg/dL) 153 H 123 H 132 H Random Glucose Calcium 07/21/18 07/21/18 07/21/18 07:38 07:38 09:44 WBC 6.6 RBC 4.95 Hgb 14.5 Hct 42.6 MCV 86.0 MCH 29.3 MCHC 34.0 RDW 12.7 Plt Count 168 MPV 9.9 Neut % (Auto) 70.0 Lymph % (Auto) 17.6 L [place] % (Auto) 10.7 H Eos % (Auto) 0.9 Baso % (Auto) 0.8 Neut # (Auto) 4.6 Lymph # (Auto) 1.2 [place] # (Auto) 0.7 Eos # (Auto) 0.1 Baso # (Auto) 0.1 Sodium 139 Potassium 3.4 L Chloride 103 Carbon Dioxide 26 Anion Gap 14 BUN 6 L Creatinine 0.6 L Est GFR ( Amer) > 60 Est GFR (Non-Af Amer) > 60 POC Glucose (mg/dL) 184 H Random Glucose 140 H Calcium 8.3 L 07/21/18 11:17 WBC RBC Hgb Hct MCV MCH MCHC RDW Plt Count MPV Neut % (Auto) Lymph % (Auto) [place] % (Auto) Eos % (Auto) Baso % (Auto) Neut # (Auto) Lymph # (Auto) [place] # (Auto) Eos # (Auto) Baso # (Auto) Sodium Potassium Chloride Carbon Dioxide Anion Gap BUN Creatinine Est GFR ( Amer) Est GFR (Non-Af Amer) POC Glucose (mg/dL) 190 H Random Glucose Calcium Assessment & Plan (1) Pneumonia Status: Acute Comment: left lung infiltrate. IV antibiotics. Legionella mycoplasma titer. glycemic control. Patient advised to quit smoking
[2018-07-21 19:33] LABS: LEGIONELLA AG URINE NEGATIVE (NEGATIVE)
[2018-07-21 21:48] LABS: MYCOPLASMA PNEUMONIAE IGM NEGATIVE (NEGATIVE)
--- NOTE | 2018-07-21 23:12 | CP.PCM.PN ---
Objective - Vital Signs/Intake and Output Vital Signs (last 24 hours): Temp Pulse Resp BP Pulse Ox 98.7 F 105 H 20 147/90 95 07/21/18 21:11 07/21/18 16:00 07/21/18 16:00 07/21/18 16:00 07/21/18 16:00 Intake and Output: 07/21/18 07/22/18 18:59 06:59 Intake Total 2220 Output Total 500 Balance 1720 - Medications Medications: Current Medications Acetaminophen (Tylenol 325mg Tab) 650 mg PO Q6 PRN PRN Reason: Fever >100.4 F Last Admin: 07/21/18 15:43 Dose: 650 mg Albuterol/Ipratropium (Duoneb 3 Mg/0.5 Mg (3 Ml) Ud) 3 ml INH RQ6 [facility] Last Admin: 07/21/18 20:20 Dose: 3 ml Enoxaparin Sodium (Lovenox) 40 mg SC DAILY [facility] Last Admin: 07/21/18 09:24 Dose: 40 mg Guaifenesin (Robitussin) 200 mg PO Q4H PRN PRN Reason: Cough and congestion Last Admin: 07/21/18 21:13 Dose: 200 mg Azithromycin 500 mg/ Sodium (Chloride) 250 mls @ 250 mls/hr IVPB DAILY [facility] PRN Reason: Protocol Last Admin: 07/21/18 09:39 Dose: 250 mls/hr Lactated Ringer's (Lactated Ringer's) 1,000 mls @ 80 mls/hr IV .[id number] [facility] Last Admin: 07/21/18 17:52 Dose: Not Given Piperacillin Sod/Tazobactam (Sod 3.375 gm/ Sodium Chloride) 100 mls @ 200 mls/ hr IVPB Q6H [facility] PRN Reason: Protocol Last Admin: 07/21/18 17:45 Dose: 200 mls/hr Insulin Glargine (Lantus) 20 unit SC BID [facility] Last Admin: 07/21/18 17:50 Dose: 20 units Insulin Human Regular (Novolin R) 0 unit SC ACHS [facility] PRN Reason: Protocol Last Admin: 07/21/18 21:13 Dose: Not Given Losartan Potassium (Cozaar) 50 mg PO DAILY [facility] Last Admin: 07/21/18 09:24 Dose: 50 mg Metformin HCl (Glucophage) 850 mg PO TID [facility] Last Admin: 07/21/18 17:50 Dose: 850 mg Pneumococcal Polyvalent Vaccine (Pneumovax 23 Vaccine) 0.5 ml IM .ONCE ONE Stop: 07/22/18 10:01 Sitagliptin Phosphate (Januvia) 100 mg PO DAILY [facility] Last Admin: 07/21/18 09:24 Dose: 100 mg - Labs Labs: 07/21/18 07:38 07/21/18 07:38
[2018-07-22] MEDS: guaiFENesin 200 mg/10 ml Syrup UD PO PRN (01:26)
[2018-07-22] MEDS: Piperacillin/Tazobact 3.375 GM in Sodium Chloride 100 ML IVPB SCH ×4 (01:27→18:33)
[2018-07-22] MEDS: Albuterol-Ipratrop 3 mg / 0.5 (3 ml) UD INH SCH ×4 (02:06→19:37)
[2018-07-22] MEDS: Lactated Ringer's 1,000 ML IV SCH ×3 (04:48→21:34)
--- NOTE | 2018-07-22 06:33 | PN ---
Copied To: Justo Willett MD Attending MD: Justo Willett MD DATE: 07/21/2018 SUBJECTIVE: The patient became afebrile today. He is on Zosyn. Overnight, he had fever. Now, he is feeling better. PHYSICAL EXAMINATION: VITAL SIGNS: Blood pressure 147/90, pulse 105, respiratory rate 20, temperature 99.3. LUNGS: Positive rales in the left mid lobe. CVS: S1, S2 regular. ABDOMEN: Soft. ASSESSMENT: 1. Pneumonia. 2. Poorly controlled diabetes. 3. Hypertension. PLAN: Continue Zosyn. Monitor the patient. Pulmonary evaluation. Justo Willett MD
[2018-07-22] MEDS: (Novolin R) Insulin Human Regular 100 units/ml vial SC SCH ×4 (07:28→21:35)
[2018-07-22 07:56] LABS: BASO # 0.1 K/uL (0.0-0.2); BASO % 0.9 % (0.0-2.0); EOS # 0.1 K/uL (0.0-0.7); EOS % 1.8 % (0.0-4.0); HEMOGLOBIN 14.1 g/dL (12.0-18.0); LYMPH # 1.5 K/uL (1.0-4.3); LYMPH % 22.1 % (20.0-40.0); MEAN CELL VOLUME 85.7 fL (80.0-94.0); MEAN CORPUSCULAR HEMOGLOBIN 29.7 pg (27.0-31.0); MEAN CORPUSCULAR HGB CONC 34.6 g/dL (33.0-37.0); MEAN PLATELET VOLUME 9.8 fL (7.2-11.7); MONO # 0.6 K/uL (0.0-0.8); MONO % 9.6 % (0.0-10.0); NEUT # 4.4 K/uL (1.8-7.0); NEUT % 65.6 % (50.0-75.0); RBC 4.74 Mil/uL (4.40-5.90); RED CELL DISTRIBUTION WIDTH 12.6 % (11.5-14.5); WHITE BLOOD COUNT 6.7 K/uL (4.8-10.8)
[2018-07-22 08:23] LABS: BLOOD UREA NITROGEN 8 mg/dL (9-20); CALCIUM 8.2 mg/dl (8.6-10.4); GFR NON-AFRICAN AMERICAN > 60
[2018-07-22] MEDS: Enoxaparin 40 mg Syringe SC SCH (09:35)
[2018-07-22] MEDS: (Lantus) Insulin Glargine, Recombinant SC SCH ×2 (09:36→18:22)
[2018-07-22] MEDS ORDERED: Pneumococcal 23-Valent Vaccine IM ONE (10:00)
[2018-07-22] MEDS: Azithromycin 500 MG in Sodium Chloride 0.9% 250 ML IVPB SCH (10:06)
--- NOTE | 2018-07-22 15:59 | CP.PCM.PN ---
Subjective - Date & Time of Evaluation Date of Evaluation: 07/22/18 Time of Evaluation: 10:20 - Subjective Subjective: Patient seen and examined Shortness of breath and cough much improved Afebrile No chest pain CAT scan of the chest consisten left lower lobe and lingular infiltrate Objective - Vital Signs/Intake and Output Vital Signs (last 24 hours): Temp Pulse Resp BP Pulse Ox 98.5 F 103 H 20 152/110 H 95 07/22/18 10:00 07/22/18 08:00 07/22/18 08:00 07/22/18 08:00 07/22/18 08:00 Intake and Output: 07/22/18 07/22/18 06:59 18:59 Intake Total 890 1470 Output Total 900 Balance -10 1470 - Medications Medications: Current Medications Acetaminophen (Tylenol 325mg Tab) 650 mg PO Q6 PRN PRN Reason: Fever >100.4 F Last Admin: 07/21/18 15:43 Dose: 650 mg Albuterol/Ipratropium (Duoneb 3 Mg/0.5 Mg (3 Ml) Ud) 3 ml INH RQ6 [facility] Last Admin: 07/22/18 13:36 Dose: 3 ml Enoxaparin Sodium (Lovenox) 40 mg SC DAILY [facility] Last Admin: 07/22/18 09:35 Dose: 40 mg Guaifenesin (Robitussin) 200 mg PO Q4H PRN PRN Reason: Cough and congestion Last Admin: 07/22/18 01:26 Dose: 200 mg Azithromycin 500 mg/ Sodium (Chloride) 250 mls @ 250 mls/hr IVPB DAILY [facility] PRN Reason: Protocol Last Admin: 07/22/18 10:06 Dose: 250 mls/hr Lactated Ringer's (Lactated Ringer's) 1,000 mls @ 80 mls/hr IV .[id number] [facility] Last Admin: 07/22/18 04:48 Dose: 80 mls/hr Piperacillin Sod/Tazobactam (Sod 3.375 gm/ Sodium Chloride) 100 mls @ 200 mls/ hr IVPB Q6H [facility] PRN Reason: Protocol Last Admin: 07/22/18 12:02 Dose: 200 mls/hr Insulin Glargine (Lantus) 20 unit SC BID [facility] Last Admin: 07/22/18 09:36 Dose: 20 units Insulin Human Regular (Novolin R) 0 unit SC ACHS [facility] PRN Reason: Protocol Last Admin: 07/22/18 12:01 Dose: 3 units Losartan Potassium (Cozaar) 100 mg PO DAILY [facility] Last Admin: 07/22/18 09:35 Dose: 100 mg Metformin HCl (Glucophage) 850 mg PO TID [facility] Last Admin: 07/22/18 13:16 Dose: 850 mg Sitagliptin Phosphate (Januvia) 100 mg PO DAILY [facility] Last Admin: 07/22/18 09:35 Dose: 100 mg - Labs Labs: 07/22/18 07:42 07/22/18 07:42 - Head Exam Head Exam: ATRAUMATIC, NORMOCEPHALIC - Eye Exam Eye Exam: Normal appearance - ENT Exam ENT Exam: Mucous Membranes Moist - Neck Exam Neck Exam: Normal Inspection - Respiratory Exam Respiratory Exam: Rales - Cardiovascular Exam Cardiovascular Exam: REGULAR RHYTHM - GI/Abdominal Exam GI & Abdominal Exam: Soft, Normal Bowel Sounds Assessment and Plan (1) Pneumonia Assessment & Plan: clinically much improved Continue IV antibiotics CAT scan of the chest noted Status: Acute
--- NOTE | 2018-07-22 16:20 | CT ---
Date of Service: 07/22/18 CT chest without IV contrast Indication: Fever, pneumonia Technique: Contiguous axial images were obtained through the chest without intravenous contrast enhancement. Sagittal and coronal reconstructions were generated and reviewed. This CT exam was performed using 1 or more of the following dose reduction techniques: Automated exposure control, adjustment of the MAA and/or kV according to patient size, and/or use of iterative reconstruction technique. Radiation dose (DLP): 855.26 MGy-cm. Comparison: Chest x-ray performed 07/19/18 Findings: Visualized portions of the inferior thyroid gland appear unremarkable. The mediastinal and hilar vascular structures appear within normal limits. The heart appears within normal limits of size. Sub cm mediastinal and prevascular adenopathy. Patchy consolidative and ground-glass mid left lung zone consolidations consistent with pneumonia. Small kqna-utpxtma-qbwa-right pleural effusions. No pneumothorax. 4 mm calcified granuloma, left lower lobe. Limited visualization of the noncontrast upper abdomen: Hypoattenuation of the liver compatible with hepatic steatosis. Borderline splenomegaly. Degenerative changes of the spine. Impression: Patchy consolidative and ground-glass mid left lung zone consolidations consistent with pneumonia. Small frft-pqttget-sink-right pleural effusions. Recommend follow-up to resolution. Sub cm prevascular/mediastinal adenopathy. Borderline splenomegaly.
--- NOTE | 2018-07-22 22:44 | CP.PCM.PN ---
Objective - Vital Signs/Intake and Output Vital Signs (last 24 hours): Temp Pulse Resp BP Pulse Ox 98.3 F 95 H 20 138/95 H 96 07/22/18 17:09 07/22/18 17:09 07/22/18 17:09 07/22/18 17:09 07/22/18 17:09 Intake and Output: 07/22/18 07/23/18 18:59 06:59 Intake Total 1470 Balance 1470 - Medications Medications: Current Medications Acetaminophen (Tylenol 325mg Tab) 650 mg PO Q6 PRN PRN Reason: Fever >100.4 F Last Admin: 07/21/18 15:43 Dose: 650 mg Albuterol/Ipratropium (Duoneb 3 Mg/0.5 Mg (3 Ml) Ud) 3 ml INH RQ6 [facility] Last Admin: 07/22/18 19:37 Dose: 3 ml Enoxaparin Sodium (Lovenox) 40 mg SC DAILY [facility] Last Admin: 07/22/18 09:35 Dose: 40 mg Guaifenesin (Robitussin) 200 mg PO Q4H PRN PRN Reason: Cough and congestion Last Admin: 07/22/18 01:26 Dose: 200 mg Azithromycin 500 mg/ Sodium (Chloride) 250 mls @ 250 mls/hr IVPB DAILY [facility] PRN Reason: Protocol Last Admin: 07/22/18 10:06 Dose: 250 mls/hr Lactated Ringer's (Lactated Ringer's) 1,000 mls @ 80 mls/hr IV .[id number] [facility] Last Admin: 07/22/18 21:34 Dose: 80 mls/hr Piperacillin Sod/Tazobactam (Sod 3.375 gm/ Sodium Chloride) 100 mls @ 200 mls/ hr IVPB Q6H [facility] PRN Reason: Protocol Last Admin: 07/22/18 18:33 Dose: 200 mls/hr Insulin Glargine (Lantus) 20 unit SC BID [facility] Last Admin: 07/22/18 18:22 Dose: 20 units Insulin Human Regular (Novolin R) 0 unit SC ACHS [facility] PRN Reason: Protocol Last Admin: 07/22/18 21:35 Dose: Not Given Losartan Potassium (Cozaar) 100 mg PO DAILY [facility] Last Admin: 07/22/18 09:35 Dose: 100 mg Metformin HCl (Glucophage) 850 mg PO TID [facility] Last Admin: 07/22/18 18:21 Dose: 850 mg Sitagliptin Phosphate (Januvia) 100 mg PO DAILY [facility] Last Admin: 07/22/18 09:35 Dose: 100 mg - Labs Labs: 07/22/18 07:42 07/22/18 07:42
[2018-07-23] MEDS: guaiFENesin 200 mg/10 ml Syrup UD PO PRN (00:03)
[2018-07-23] MEDS: Albuterol-Ipratrop 3 mg / 0.5 (3 ml) UD INH SCH ×2 (01:37→13:29)
[2018-07-23] MEDS: Piperacillin/Tazobact 3.375 GM in Sodium Chloride 100 ML IVPB SCH ×3 (05:21→12:10)
--- NOTE | 2018-07-23 06:25 | PN ---
Copied To: Justo Willett MD Attending MD: Justo Willett MD DATE: 07/22/2018 SUBJECTIVE: The patient is afebrile. Now, he is feeling much better. PHYSICAL EXAMINATION: VITAL SIGNS: Blood pressure is 138/95, pulse 95, respiratory rate 20, and temperature 98.3. LUNGS: Positive rales in left middle lobe. CVS: S1 and S2 regular. ABDOMEN: Soft. ASSESSMENT: 1. Left-sided pneumonia. 2. Diabetes. 3. Hypertension. PLAN: Continue current medications. Monitor the patient. Justo Willett MD
[2018-07-23] MEDS: Lactated Ringer's 1,000 ML IV SCH (07:44)
[2018-07-23 07:45] VITALS: PULSE 91
[2018-07-23] MEDS: (Novolin R) Insulin Human Regular 100 units/ml vial SC SCH ×2 (08:08→12:10)
[2018-07-23] MEDS: Azithromycin 500 MG in Sodium Chloride 0.9% 250 ML IVPB SCH (09:55)
[2018-07-23] MEDS: Enoxaparin 40 mg Syringe SC SCH (09:57)
[2018-07-23] MEDS: (Lantus) Insulin Glargine, Recombinant SC SCH (09:59)
--- NOTE | 2018-07-23 13:09 | CP.PCM.PN ---
Subjective - Date & Time of Evaluation Date of Evaluation: 07/23/18 Time of Evaluation: 08:45 - Subjective Subjective: Patient seen and examined Cough and shortness of breath much improved Afebrile Being treated for pneumonia Stable from pulm standpoint to discharge on p.o. antibiotics Objective - Vital Signs/Intake and Output Vital Signs (last 24 hours): Temp Pulse Resp BP Pulse Ox 98.3 F 91 H 20 157/98 H 95 07/23/18 07:42 07/23/18 07:42 07/23/18 07:42 07/23/18 07:42 07/23/18 07:42 Intake and Output: 07/23/18 07/23/18 06:59 18:59 Intake Total 1110 840 Output Total 700 Balance 410 840 - Medications Medications: Current Medications Acetaminophen (Tylenol 325mg Tab) 650 mg PO Q6 PRN PRN Reason: Fever >100.4 F Last Admin: 07/21/18 15:43 Dose: 650 mg Albuterol/Ipratropium (Duoneb 3 Mg/0.5 Mg (3 Ml) Ud) 3 ml INH RQ6 [facility] Last Admin: 07/23/18 01:37 Dose: 3 ml Enoxaparin Sodium (Lovenox) 40 mg SC DAILY [facility] Last Admin: 07/23/18 09:57 Dose: 40 mg Guaifenesin (Robitussin) 200 mg PO Q4H PRN PRN Reason: Cough and congestion Last Admin: 07/23/18 00:03 Dose: 200 mg Azithromycin 500 mg/ Sodium (Chloride) 250 mls @ 250 mls/hr IVPB DAILY [facility] PRN Reason: Protocol Last Admin: 07/23/18 09:55 Dose: 250 mls/hr Piperacillin Sod/Tazobactam (Sod 3.375 gm/ Sodium Chloride) 100 mls @ 200 mls/ hr IVPB Q6H [facility] PRN Reason: Protocol Last Admin: 07/23/18 12:10 Dose: 200 mls/hr Insulin Glargine (Lantus) 20 unit SC BID [facility] Last Admin: 07/23/18 09:59 Dose: 20 units Insulin Human Regular (Novolin R) 0 unit SC ACHS [facility] PRN Reason: Protocol Last Admin: 07/23/18 12:10 Dose: 2 units Losartan Potassium (Cozaar) 100 mg PO DAILY [facility] Last Admin: 07/23/18 09:56 Dose: 100 mg Metformin HCl (Glucophage) 850 mg PO TID [facility] Last Admin: 07/23/18 09:56 Dose: 850 mg Sitagliptin Phosphate (Januvia) 100 mg PO DAILY [facility] Last Admin: 07/23/18 09:56 Dose: 100 mg - Labs Labs: 07/22/18 07:42 07/22/18 07:42 Assessment and Plan (1) Pneumonia Status: Acute
--- NOTE | 2018-07-23 14:27 | CP.PCM.PN ---
Subjective - Date & Time of Evaluation Date of Evaluation: 07/23/18 Time of Evaluation: 11:00 - Subjective Subjective: Patient seen today, states feels better, sob,cough improved, denies any fever, chills, abdominal pain , N/V/D a febrile for 48 hrs - max temp 99 .1 over 24 hrs Objective - Vital Signs/Intake and Output Vital Signs (last 24 hours): Temp Pulse Resp BP Pulse Ox 98.3 F 91 H 20 157/98 H 95 07/23/18 07:42 07/23/18 07:42 07/23/18 07:42 07/23/18 07:42 07/23/18 07:42 Intake and Output: 07/23/18 07/23/18 06:59 18:59 Intake Total 1110 840 Output Total 700 Balance 410 840 - Medications Medications: Current Medications Acetaminophen (Tylenol 325mg Tab) 650 mg PO Q6 PRN PRN Reason: Fever >100.4 F Last Admin: 07/21/18 15:43 Dose: 650 mg Albuterol/Ipratropium (Duoneb 3 Mg/0.5 Mg (3 Ml) Ud) 3 ml INH RQ6 [facility] Last Admin: 07/23/18 13:29 Dose: 3 ml Enoxaparin Sodium (Lovenox) 40 mg SC DAILY [facility] Last Admin: 07/23/18 09:57 Dose: 40 mg Guaifenesin (Robitussin) 200 mg PO Q4H PRN PRN Reason: Cough and congestion Last Admin: 07/23/18 00:03 Dose: 200 mg Azithromycin 500 mg/ Sodium (Chloride) 250 mls @ 250 mls/hr IVPB DAILY [facility] PRN Reason: Protocol Last Admin: 07/23/18 09:55 Dose: 250 mls/hr Piperacillin Sod/Tazobactam (Sod 3.375 gm/ Sodium Chloride) 100 mls @ 200 mls/ hr IVPB Q6H [facility] PRN Reason: Protocol Last Admin: 07/23/18 12:10 Dose: 200 mls/hr Insulin Glargine (Lantus) 20 unit SC BID [facility] Last Admin: 07/23/18 09:59 Dose: 20 units Insulin Human Regular (Novolin R) 0 unit SC ACHS [facility] PRN Reason: Protocol Last Admin: 07/23/18 12:10 Dose: 2 units Losartan Potassium (Cozaar) 100 mg PO DAILY [facility] Last Admin: 07/23/18 09:56 Dose: 100 mg Metformin HCl (Glucophage) 850 mg PO TID [facility] Last Admin: 07/23/18 13:47 Dose: 850 mg Sitagliptin Phosphate (Januvia) 100 mg PO DAILY [facility] Last Admin: 07/23/18 09:56 Dose: 100 mg - Labs Labs: 07/22/18 07:42 07/22/18 07:42 - Constitutional Appears: Well, No Acute Distress - Respiratory Exam Respiratory Exam: Rales, NORMAL BREATHING PATTERN - Cardiovascular Exam Cardiovascular Exam: REGULAR RHYTHM, +S1, +S2 - Neurological Exam Neurological Exam: Alert, Awake, Oriented x3 Assessment and Plan - Assessment and Plan (Free Text) Assessment: A/P 43 year old male with PMHx of DM,HTN presents to the ED for evaluation of fever which is associated with cough, chills, vomiting, diarrhea and decreased appetite and cxr done in ER shows pneumonia Patient started on antibiotics and clinically improved a febrile for 24 hrs blood culture - negative for x [address] done -patchy consolidative and ground-glass mid left lung zone consolidations consistent with pneumonia. Small eqfz-tiqqwag-vwej-right pleural effusions. seen by Dr. Ricardo today, cleared for discharge home today from pulmonary standpoint with po antibiotics D/W Dr. Willett, cleared for discharge patient home today and f/u with his office in 1 week Discharge plan discussed with patient who understands and arees with plan , Patient instructed to call Dr. Willett or returns to ED if symptoms returns or any other concerning symptoms
[2018-07-23 16:24] VITALS: BP 143/97; TEMP 98.1; O2SAT 96
--- NOTE | 2018-07-23 23:41 | CP.PCM.DIS ---
Provider - Provider Date of Admission: 07/19/18 20:18 Attending physician: Justo Willett MD Hospital Course - Lab Results Lab Results: Micro Results 07/19/18 08:40 Blood Blood Culture - Preliminary NO GROWTH AFTER 3 DAYS 07/19/18 08:20 Blood Blood Culture - Preliminary NO GROWTH AFTER 3 DAYS Most Recent Lab Values WBC 6.7 K/uL (4.8-10.8) 07/22/18 07:42 RBC 4.74 Mil/uL (4.40-5.90) 07/22/18 07:42 Hgb 14.1 g/dL (12.0-18.0) 07/22/18 07:42 Hct 40.6 % (35.0-51.0) 07/22/18 07:42 MCV 85.7 fL (80.0-94.0) 07/22/18 07:42 MCH 29.7 pg (27.0-31.0) 07/22/18 07:42 MCHC 34.6 g/dL (33.0-37.0) 07/22/18 07:42 RDW 12.6 % (11.5-14.5) 07/22/18 07:42 Plt Count 198 K/uL (130-400) 07/22/18 07:42 MPV 9.8 fL (7.2-11.7) 07/22/18 07:42 Neut % (Auto) 65.6 % (50.0-75.0) 07/22/18 07:42 Lymph % (Auto) 22.1 % (20.0-40.0) 07/22/18 07:42 [place] % (Auto) 9.6 % (0.0-10.0) 07/22/18 07:42 Eos % (Auto) 1.8 % (0.0-4.0) 07/22/18 07:42 Baso % (Auto) 0.9 % (0.0-2.0) 07/22/18 07:42 Neut # (Auto) 4.4 K/uL (1.8-7.0) 07/22/18 07:42 Lymph # (Auto) 1.5 K/uL (1.0-4.3) 07/22/18 07:42 [place] # (Auto) 0.6 K/uL (0.0-0.8) 07/22/18 07:42 Eos # (Auto) 0.1 K/uL (0.0-0.7) 07/22/18 07:42 Baso # (Auto) 0.1 K/uL (0.0-0.2) 07/22/18 07:42 Neutrophils % (Manual) 83 % (50-75) H 07/19/18 18:49 Lymphocytes % (Manual) 8 % (20-40) L 07/19/18 18:49 Monocytes % (Manual) 9 % (0-10) 07/19/18 18:49 Platelet Estimate Normal (NORMAL) 07/19/18 18:49 Sodium 141 mmol/L (132-148) 07/22/18 07:42 Potassium 3.7 mmol/L (3.6-5.2) 07/22/18 07:42 Chloride 105 mmol/L (98-107) 07/22/18 07:42 Carbon Dioxide 27 mmol/L (22-30) 07/22/18 07:42 Anion Gap 13 (10-20) 07/22/18 07:42 BUN 8 mg/dL (9-20) L 07/22/18 07:42 Creatinine 0.7 mg/dL (0.8-1.5) L 07/22/18 07:42 Est GFR ( Amer) > 60 07/22/18 07:42 Est GFR (Non-Af Amer) > 60 07/22/18 07:42 POC Glucose (mg/dL) 174 mg/dL (65-110) H 07/23/18 11:19 Random Glucose 126 mg/dL (75-110) H 07/22/18 07:42 Hemoglobin A1c 10.7 % (4.2-6.5) H 07/22/18 07:42 Calcium 8.2 mg/dl (8.6-10.4) L 07/22/18 07:42 Total Bilirubin 1.4 mg/dL (0.2-1.3) H 07/19/18 18:49 AST 40 U/L (17-59) 07/19/18 18:49 ALT 63 U/L (21-72) 07/19/18 18:49 Alkaline Phosphatase 123 U/L (38-126) 07/19/18 18:49 Total Protein 7.0 g/dL (6.3-8.3) 18 18:49 Albumin 3.9 g/dL (3.5-5.0) 18 18:49 Globulin 3.1 gm/dL (2.2-3.9) 0818 18:49 Albumin/Globulin Ratio 1.3 (1.0-2.1) 18 18:49 Urine Color Yellow (YELLOW) 07/19/18 18:49 Urine Clarity Clear (Clear) 07/19/18 18:49 Urine pH 6.0 (5.0-8.0) 0818 18:49 Ur Specific [place] 1.012 (1.003-1.030) 07/19/18 18:49 Urine Protein 1+ mg/dL (NEGATIVE) H 18 18:49 Urine Glucose (UA) 1+ mg/dL (Normal) H 18 18:49 Urine Ketones Trace mg/dL (NEGATIVE) 07/19/18 18:49 Urine Blood Negative (NEGATIVE) 07/19/18 18:49 Urine Nitrate Negative (NEGATIVE) 18 18:49 Urine Bilirubin Negative (NEGATIVE) 18 18:49 Urine Urobilinogen 2.0 mg/dL (0.2-1.0) 18 18:49 Ur Leukocyte Esterase Neg Radha/uL (Negative) 18 18:49 Urine WBC (Auto) 1 /hpf (0-5) 18 18:49 Ur Squamous Epith Cells < 1 /hpf (0-5) 18 18:49 Ur L.pneumophila Ag Negative (NEGATIVE) 18 16:56 Mycoplasma pneumon IgM Negative (NEGATIVE) 18 16:56 Discharge Exam - Head Exam Head Exam: ATRAUMATIC, NORMOCEPHALIC Discharge Plan - Discharge Medications Prescriptions: Losartan [Cozaar] 100 mg PO DAILY #60 tab Levofloxacin [Levaquin] 750 mg PO DAILY #5 tablet - Follow Up Plan Condition: STABLE Disposition: HOME/ ROUTINE Instructions: Pneumonia, Adult (DC) Additional Instructions: Please f/u with office in 1 week continue antibiotics for 5 more days Resume all home medications Referrals: Justo Willett MD [Staff Provider] -
--- NOTE | 2018-07-24 21:58 | DS ---
Copied To: Justo Willett MD Attending MD: Justo Willett MD ADMISSION DIAGNOSIS: Pneumonia. DISCHARGE DIAGNOSES: Pneumonia, diabetes, hypertension, dehydration. HISTORY OF PRESENT ILLNESS: This is a 43-year-old male with history of diabetes, hypertension, and hyperlipidemia, who came in because of pneumonia. The patient was started on Rocephin, due to lack of response. He improved. He has been discharged with outpatient followup. PHYSICAL EXAMINATION: VITAL SIGNS: Blood pressure 143/97, pulse 91, respiratory rate 20, temperature 98.1. LABORATORY DATA: WBC 9.6, hemoglobin 15.4, hematocrit 44.7, platelets 173. Chemistry showed sodium 141, potassium 3.7, chloride 105, bicarb 27, BUN , creatinine 0.7. The patient is afebrile, improved. He was discharged with outpatient followup. CONDITION UPON DISCHARGE: Stable. Justo Willett MD
== END 2018-07-23 16:28 | disposition home or self-care (01) | DRG 89 ==
LOC: C.ER 17:57 → C.9E 20:18 → C.3T 21:04
PROVIDERS: ADMIT Internal Medicine; ATTEND Internal Medicine
DX: J18.9 Pneumonia, unspecified organism (principal); E86.0 Dehydration; E11.65 Type 2 diabetes mellitus with hyperglycemia; J90 Pleural effusion, not elsewhere classified; I10 Essential (primary) hypertension; E78.5 Hyperlipidemia, unspecified; F17.219 Nicotine dependence, cigarettes, with unspecified nicotine-induced disorders; Z91.11 Patient's noncompliance with dietary regimen